=== PATIENT | male | born 1980 | race Caucasian/White ===

== ENCOUNTER 2021-06-29 13:50 | Emergency (ER) | payer OTHER ==
[~2021-06-29] VITALS: Ht 157.5 cm; Wt 73.5 kg
[2021-06-29 13:59] VITALS: BP 117/70
[2021-06-29] MEDS ORDERED: KETOROLAC 60 MG/2 ML VIAL IM ONE (14:10)
[2021-06-29] MEDS ORDERED: IBUP-2213 PO (14:18)
[2021-06-29] MEDS ORDERED: ACET-8386 PO (14:18)
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
[2021-06-29 15:45] VITALS: BP 117/70
--- NOTE | 2021-06-29 15:45 | NUR ---
Patient discharged with v/s stable. Written and verbal after care instructions given and explained. Patient alert, oriented and verbalized understanding of instructions. Ambulatory with steady gait. All questions addressed prior to discharge. ID band removed. Patient advised to follow up with PMD. Rx of IBUPROFEN AND HYDROCODNE/ACETAMINOPHEN given. Patient educated on indication of medication including possible reaction and side effects. Opportunity to ask questions provided and answered.
== END 2021-06-29 15:45 | disposition home or self-care (01) ==
LOC: MED 13:50
DX: S13.4XXA Sprain of ligaments of cervical spine, initial encounter (principal); R07.89 Other chest pain; Z79.899 Other long term (current) drug therapy; V89.2XXA Person injured in unspecified motor-vehicle accident, traffic, initial encounter; Y93.89 Activity, other specified; Y92.89 Other specified places as the place of occurrence of the external cause; Y99.8 Other external cause status
CPT/HCPCS: 96372; 99283; J1885